=== PATIENT | female | born 2000 | race Caucasian/White ===

== ENCOUNTER 2018-04-27 13:41 | Emergency (ER) | payer OTHER ==
[~2018-04-27] VITALS: Ht 154.9 cm; Wt 50.0 kg
[2018-04-27 15:33] LABS: HEMATOCRIT. 42.1 % (36.0-48.0); HEMOGLOBIN. 14.6 g/dL (12.0-16.0); MEAN CORPUSCULAR HEMOGLOBIN 31.8 pg (28.0-32.0); MEAN CORPUSCULAR VOLUME 91.4 fL (81.0-99.0); MEAN PLATELET VOLUME 8.8 fl (7.4-10.4); PLATELET 231 x1000/uL (130-400); RED CELL DISTRIBUTION WIDTH 12.5 % (11.6-14.6)
[2018-04-27 15:36] LABS: CHLORIDE 103 mEq/L (98-107)
[2018-04-27 15:46] LABS: CLARITY URINE CLEAR (CLEAR); COLOR URINE YELLOW (YELLOW); KETONES URINE 2+ (NEGATIVE); LEUKOCYTE ESTERASE URINE TRACE (NEGATIVE); NITRITE URINE NEGATIVE (NEGATIVE); OCCULT BLOOD URINE NEGATIVE (NEGATIVE); PH URINE >=9.0 (4.5-8.0); PROTEIN URINE NEGATIVE (NEGATIVE); SPECIFIC GRAVITY URINE 1.021 (1.005-1.030); UROBILINOGEN URINE 0.2 E.U./dL (0.2-1.0)
[2018-04-27 15:53] LABS: PLATELET ESTIMATE NORMAL
[2018-04-27] MEDS ORDERED: SODIUM CHLORIDE 0.9% 1,000 ML IV ONE (17:15)
[2018-04-27] MEDS ORDERED: ONDANSETRON HCL 4MG/2ML INJ IV ONE (17:15)
[2018-04-27] MEDS ORDERED: KETOROLAC 30MG/ML VIAL IV SCH (17:15)
[2018-04-27 18:25] VITALS: BP 104/51
== END 2018-04-27 18:55 | disposition home or self-care (01) ==
LOC: ER 16:45
DX: R11.2 Nausea with vomiting, unspecified (principal); R10.2 Pelvic and perineal pain
CPT/HCPCS: 36415; 76830; 76856; 80053; 81003; 81025; 85025; 96361; 96374; 96375; 99284; J1885; J2405

== ENCOUNTER 2018-04-30 17:35 | Emergency (ER) | payer OTHER ==
[~2018-04-30] VITALS: Ht 154.9 cm; Wt 52.0 kg
[2018-04-30 21:26] VITALS: BP 98/79
== END 2018-04-30 21:55 | disposition home or self-care (01) ==
LOC: ER 17:35
DX: L72.3 Sebaceous cyst (principal); R53.1 Weakness; R11.0 Nausea; D64.9 Anemia, unspecified
CPT/HCPCS: 81025; 99282